=== PATIENT | male | born 1990 | race Asian ===

== ENCOUNTER → 2023-07-24 11:37 | Outpatient (REF) | payer OTHER, SELFPAY | LOC: RAD 11:37 | PROVIDERS: ATTENDING PHYSICIAN Orthopaedic Surgery; FAMILY PHYSICIAN Family Medicine | DX: S93.491D Sprain of other ligament of right ankle, subsequent encounter (principal) | CPT/HCPCS: 76882 ==

== ENCOUNTER 2024-11-06 06:25 | Day surgery (SDC) | payer OTHER, SELFPAY ==
[2024-11-06 06:23] VITALS: BMI 23.2
[2024-11-06 06:26] VITALS: BP 114/66
[2024-11-06] MEDS: NORMOSOL-R/PLASMALYTE-A 1000 IV (06:39)
[2024-11-06 06:45] VITALS: BMI 23.2
[2024-11-06 08:33] VITALS: BP 122/69
[2024-11-06 08:45] VITALS: BP 106/73
[2024-11-06 09:00] VITALS: BP 108/66
[2024-11-06 09:15] VITALS: BP 114/68
== END 2024-11-06 09:40 | disposition home or self-care (01) ==
LOC: SDS 06:25
PROVIDERS: ATTENDING PHYSICIAN Specialist
DX: Z30.2 Encounter for sterilization (principal); N47.1 Phimosis; N47.8 Other disorders of prepuce
CPT/HCPCS: 54161; 55250; 88302; 88304

== ENCOUNTER 2025-03-26 14:31 | Emergency (ER) | payer OTHER, SELFPAY ==
[2025-03-26 14:50] VITALS: BP 118/74
--- NOTE | 2025-03-26 16:42 | ED.GENMED ---
History of Present Illness
General
Chief Complaint: Musculo-Skeletal Complaint
Source: patient
Time Seen by Provider: 03/26/25 15:41
History of Present Illness
History of Present Illness:
34-year-old male with past medical history of hyperlipidemia status post recent left knee ACL reconstruction and medial/lateral meniscus trimming done on December 03, 2011 weeks ago also had left ankle surgery, today while at physical therapy was
developing worsening pain to his left knee, patient contacted his orthopedic physician who recommended he come to the ER for further evaluation. Patient states he does not know why they told him to come to the emergency and notes that he is just
very frustrated that he is having persistent pain in his knee despite multiple different surgeries to fix him's. Patient denies any calf pain or tenderness, fevers, chills, rigors. He notes that he is still able to range of motion the knee without
much difficulty. No new injuries or concerns.
Past History
Past History
ED Past Medical History: Hypercholesterolemia
ED Past Surgical History: Orthopedic (Left knee surgery )
Social History
Tobacco: Non-smoker
Alcohol: None
Drug: None
Personal: Single
Living: with family
Employment: Employed
Review of Systems
Review of Systems
All Other Systems: ROS reviewed and negative except as documented in HPI and ROS
Phy Exam
Physical Exam
Physical Exam:
GENERAL: Alert , in no apparent distress
EYE: conjunctiva clear
Head: Normocephalic atraumatic
NECK: Supple,
ENT: mmm.
LUNGS: no acute respiratory distress
NEUROLOGICAL: Alert and oriented
SKIN: Warm and dry, skin intact.
MUSCULOSKELETAL: well perfused. Left lower extremity: Well-healed surgical incisions/scars to the lateral left knee and lateral ankle, no surrounding erythema, full range of motion with minimal pain. Neurovascularly intact. No joint effusions.
PSYCH: Normal and appropriate interaction.
Scores
Heart Failure Risk
Heart Failure Risk Score: Not Applicable
Heart Score for Chest Pain Patients
STEMI patient?: Not applicable
Withdrawal Assessment of Alcohol
Withdrawal Assessment Completed?: Not applicable
Course
Orders/Labs/Results
Orders:
Orders
03/26/25 16:30
US Periph Venous LOWER Ext LT Urgent
Comment:
Reason For Exam: pain, recent surgery
Vital Signs
Initial and Last Documented VS:
Initial Vital Signs
Temp Pulse Resp BP Pulse Ox
98.1 F 62 18 118/74 100
03/26/25 14:50 03/26/25 14:50 03/26/25 14:50 03/26/25 14:50 03/26/25 14:50
Last Documented Vital Signs
Temp Pulse Resp BP Pulse Ox
98.1 F 62 18 118/74 100
03/26/25 14:50 03/26/25 14:50 03/26/25 14:50 03/26/25 14:50 03/26/25 16:43
MDM/Problems Addressed
Differential Diagnosis Includes:
Post op pain
DVT
Less concern for septic joint
MDM/Problems Addressed:
34-year-old male presenting to the ER at the request of his orthopedic physician for evaluation of worsening left knee pain. Patient states the pain is mainly anterolateral/medial, has had this similar pain in the past which is what led him to
having these surgeries, no fevers or infectious symptoms. Overall my suspicion for emergent pathology is very low, based off location of pain I doubt DVT, no symptoms or findings to suggest septic joint. Will obtain a ultrasound to rule out DVT
given the recent surgery however I do suspect patient will need to follow-up with his orthopedic team on an outpatient basis
*Radiology
Radiology exam reviewed: preliminary read by ED provider (Ultrasound negative for DVT)
*Pulse Oximetry
SaO2: 100
Oxygen Mode of Delivery: Room air
Patient hypoxic: no
*Critical Care Note
Total Time (30-74mins, 75-104mins- exclusive of procedures): Not Applicable
Patient Management
Escalation/DeEscalation of care consider admission/obs:
Patient's ultrasound is negative for any DVT or emergent pathology. Stable for discharge home and outpatient follow-up with his orthopedic team.
ED Attending Note
-
Portions of this chart may have been created with voice recognition software.� Occasional wrong word or��sound alike� substitutions may have occurred due to the inherent limitations of voice recognition software.
Discharge Plan
Departure
Patient Disposition: Home (Routine Discharge)
Date of Disposition: 03/26/25
Time of Disposition: 17:53
Patient with high blood pressure during this ER visit?: No
Discharge Problem:
Left knee pain
Instructions: Knee Pain (DC)
Prescriptions:
No Action
atorvastatin 20 mg Tablet
20 mg PO DAILY
ibuprofen 200 mg Tablet
400 mg PO Q6H PRN (Reason: pain)
Referrals:
Jose Alberto Souza DO [Family Provider, Family Practice]
Interventions
Interventions:
*Risk Screen - Suicide Last Done: 03/26/25 14:51
*Neglect/Abuse Screening Last Done: 03/26/25 14:51
ED-Musculoskeletal Assessment Last Done: 03/26/25 17:02
Discharge Date and Time
Print Language: CZECH
== END 2025-03-26 18:10 | disposition home or self-care (01) ==
LOC: EMR 14:31
PROVIDERS: EMERGENCY PHYSICIAN Emergency Medicine; FAMILY PHYSICIAN Family Medicine
DX: M25.562 Pain in left knee (principal); E78.00 Pure hypercholesterolemia, unspecified; Z98.890 Other specified postprocedural states
CPT/HCPCS: 99284; 93971

== ENCOUNTER 2025-06-15 06:37 | Outpatient (RCR) | payer OTHER, SELFPAY | END 2025-06-15 23:59 | disposition home or self-care (01) | LOC: RPT 06:37 | PROVIDERS: ATTENDING PHYSICIAN Physician Assistant; FAMILY PHYSICIAN Family Medicine; REFERRING PHYSICIAN Physician Assistant Medical | DX: Z47.89 Encounter for other orthopedic aftercare (principal); M25.562 Pain in left knee; M17.11 Unilateral primary osteoarthritis, right knee; Z73.6 Limitation of activities due to disability; R26.89 Other abnormalities of gait and mobility; R20.2 Paresthesia of skin | CPT/HCPCS: 97110; 97162 ==